=== PATIENT | female | born 1965 | race African-American/Black ===

== ENCOUNTER 2018-08-19 14:47 | Emergency (ER) | payer SELFPAY ==
[~2018-08-19] VITALS: Ht 162.6 cm; Wt 98.4 kg
[2018-08-19 15:15] VITALS: BP 126/87
[2018-08-19] MEDS ORDERED: Methocarbamol 500mg tab ORAL ONE (15:30)
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
[2018-08-19] MEDS ORDERED: TYLENOL EXTRA500 MG ORAL (16:34)
[2018-08-19] MEDS ORDERED: ROBAXIN500 MG PO (16:34)
[2018-08-19] MEDS ORDERED: LIDOCAINE700 M1 TP (16:34)
[2018-08-19 16:58] VITALS: BP 126/87
== END 2018-08-19 16:59 | disposition home or self-care (01) ==
LOC: EMR 15:55
DX: M54.2 Cervicalgia (principal); M54.9 Dorsalgia, unspecified; M25.512 Pain in left shoulder; S80.01XA Contusion of right knee, initial encounter; V43.52XA Car driver injured in collision with other type car in traffic accident, initial encounter; Y92.414 Local residential or business street as the place of occurrence of the external cause; I10 Essential (primary) hypertension
CPT/HCPCS: 99283